=== PATIENT | male | born 1960 | race Caucasian/White ===

== ENCOUNTER 2018-01-29 09:25 | Emergency (ER) | payer OTHER ==
[2018-01-29 09:32] VITALS: BP 135/110
[2018-01-29] MEDS ORDERED: IBUPROFEN 600 MG TAB PO ONE (09:38)
--- NOTE | 2018-01-29 09:55 | EDPHY ---
General Time Seen by Provider: 01/29/18 09:40 Narrative: CHIEF COMPLAINT: Right shoulder pain HISTORY OF PRESENT ILLNESS: Patient presents by private vehicle with complaints of right shoulder pain. He was at work trying to put on a jacket just prior to arrival when he felt a sudden onset of pain in the right shoulder. Pain is primarily over the outer part of the shoulder. It is moderate to severe with movement. Mild at rest. He denies any fall, trauma or injury. He has no numbness or tingling distal to the injury. He has no previous injury to that shoulder. Right-hand dominant. He has no chest pain or shortness of breath. No other associated complaints or modifying factors. REVIEW OF SYSTEMS: 10 systems were reviewed and negative with the exception of the elements mentioned in the history of present illness. PCP: Located at [facility] SPECIALISTS: Located at [facility] PAST MEDICAL HISTORY: Hypertension, Perforated viscus PAST SURGICAL HISTORY: Neck, back and knee surgery. Hernia repair. Laparotomy SOCIAL HISTORY: Nonsmoker. Lives independently. FAMILY HISTORY: Noncontributory EXAMINATION: Vitals: Triage VS reviewed General Appearance: Alert, no distress. Well appearing. Ambulatory Head: normocephalic, atraumatic Respiratory: Lungs are clear to auscultation. No wheezing, rhonchi or crackles. Cardiovascular: Regular rate. Symmetric radial pulses 2+. Good signs of perfusion right upper extremity. Neurological: A&O, light sensory symmetric upper extremity strength is symmetric in the elbow and wrist. Skin: Warm and dry, no rash. Well-healed surgical incisions on the abdomen. Extremities: Moderate tenderness about the right shoulder joint over the insertion of the supraspinatus. There is no tenderness of the bicipital groove. Negative Yergason's speed. Pain with abduction and external rotation. There is minimal bony tenderness of the right humeral head. Range of motion of the upper extremities symmetric without apprehension of the right shoulder external rotation. No signs of DVT in the right upper extremity. Psychiatric: Mood and affect normal DIFFERENTIAL DIAGNOSES: Including but not limited to rotator cuff injury, slap tear, sprain, strain, fracture, subluxation, dislocation MDM: 9:40 a.m. Acute right shoulder pain with suspected rotator cuff versus SLAP tear injury. There is mild bony tenderness about the humerus, thus I will obtain an x-ray. He is neuro intact distally. There is no chest pain or shortness of breath. The lungs are well auscultated. No trauma as this occurred while putting on his jacket. He is in no acute distress. Ibuprofen as been ordered. 9:55 a.m. X-ray as read by me, without radiologist, reveals no acute fractures. There are osteoarthritic changes of the right shoulder and AC joint. Patient has been placed in a splint. I re-evaluated discussed rest, ice and elevation. We discussed sling for comfort with [id number] exercises throughout the day. We discussed orthopedic follow-up for definitive care. I have answered all his questions. He will be discharged home stable condition. SUPERVISION: This patient was independently evaluated without direct involvement of or examination by the attending physician. CONSULTATION: None - Diagnostics Imaging Results: Imaging Impressions Shoulder X-Ray 01/29/18 09:40 Impression: 1. No definite acute fracture. 2. Moderate osteoarthritis of the right acromioclavicular joint. 3. Slight deformity and degenerative changes of the right humeral head. - History Smoking Status: Never smoked - Objective Vital Signs: Initial Vital Signs Temperature (C) 97.5 F 01/29/18 09:28 Heart Rate 74 01/29/18 09:28 Respiratory Rate 18 01/29/18 09:28 Blood Pressure 135/110 H 01/29/18 09:28 O2 Sat (%) 95 01/29/18 09:28 O2 Delivery Mode Room Air Allergies/Adverse Reactions: seafood Allergy (Uncoded 01/29/18 09:27) Home Medications: Medication Instructions Recorded Htn 01/29/18 Medications Given: Discontinued Medications Ibuprofen (Motrin) 600 mg PO EDNOW ONE Stop: 01/29/18 09:39 Last Admin: 01/29/18 09:40 Dose: 600 mg Departure - Departure Disposition: Home, Routine, Self-Care Clinical Impression: Sprain of right shoulder joint Qualifiers: Encounter type: initial encounter Shoulder sprain type: unspecified sprain Qualified Code(s): S43.401A - Unspecified sprain of right shoulder joint, initial encounter Condition: Good Instructions: Shoulder Sprain (ED) Additional Instructions: 1. Ice and elevate the right shoulder as needed. 2. Ibuprofen 600 mg every 6 hr as needed. Next dose will be due on or after 3: 30 p.m. Today. 3. Follow up with orthopedist outpatient for definitive care. Referrals: YELENA EMANUEL [Other] - As per Instructions Bert Camacho MD [Medical Doctor] - As per Instructions
== END 2018-01-29 10:15 | disposition home or self-care (01) ==
DX: S43.401A Unspecified sprain of right shoulder joint, initial encounter (principal); X50.9XXA Other and unspecified overexertion or strenuous movements or postures, initial encounter; Y92.89 Other specified places as the place of occurrence of the external cause; Y93.9 Activity, unspecified; Y99.0 Civilian activity done for income or pay
CPT/HCPCS: A4565